=== PATIENT | female | born 1955 | race Caucasian/White ===

== ENCOUNTER 2017-10-14 16:44 | Emergency (ER) | payer OTHER ==
--- NOTE | 2017-10-14 17:33 | RAD ---
CHEST TWO VIEWS 10/14/17 HISTORY: Cough. COMPARISON: 03/08/11. FINDINGS: Chest two views. Normal cardiac silhouette. The pulmonary vessels and hilum are normal. Costophrenic angles are clear. Costophrenic angles are clear. No consolidation or mass. No pneumothorax or osseous abnormalities. IMPRESSION: No acute cardiopulmonary process. POS: [facility]
== END 2017-10-14 17:32 | disposition home or self-care (01) ==
LOC: NAV ERS 16:44
DX: J20.9 Acute bronchitis, unspecified (principal); E03.9 Hypothyroidism, unspecified; E78.5 Hyperlipidemia, unspecified; I10 Essential (primary) hypertension; Z79.899 Other long term (current) drug therapy
CPT/HCPCS: 71046